=== PATIENT | male | born 1950 | race Caucasian/White ===

== ENCOUNTER 2019-03-29 16:34 | Emergency (ER) | payer MEDICARE ==
[2019-03-29] MEDS: SODIUM CHLORIDE 0.9% 500 ML 500 ML IV SCH ×5 (17:00→20:45)
[2019-03-29] MEDS ORDERED: IBUPROFEN 600 MG TAB PO STA (17:09)
--- NOTE | 2019-03-29 17:19 | ED ---
General Adult HPI - General Chief complaint: Weakness Stated complaint: POSS INFECTION Time Seen by Provider: 03/29/19 16:45 Source: patient, EMS Mode of arrival: EMS Limitations: no limitations - History of Present Illness Initial comments: The patient is a 68-year-old male who presents emergency room with reported generalized weakness. He does have a history of pancreatic cancer. Family states that today he has been generally weak. They have noticed color changes to his skin. Eyes appear more yellow. He did have a stent placed at [facility] in December. His surgeon was Dr. Benitez. Reports that he has been following up with for chemotherapy. Last chemo was 3 weeks ago. This was his first round he is completed. No radiation received. Family noted that the patient had a fever this morning. States that his stent has been infected once before. He admits to chills. Denies any pain. No headaches or visual changes. Denies any neck pain or stiffness. No chest pain or shortness of breath. Denies a cough. No abdominal pain. There are no other alleviating, precipitating or modifying factors - Related Data Home Medications Medication Instructions Recorded Confirmed Dronabinol [Marinol] 2.5 mg PO AC-BID 03/29/19 03/29/19 Methylphenidate HCl [Ritalin] 5 mg PO BID 03/29/19 03/29/19 Ondansetron Odt [Zofran Odt] 8 mg PO TID PRN 03/29/19 03/29/19 oxyCODONE HCL [oxyCODONE HCL (IR)] 10 mg PO Q4H PRN 03/29/19 03/29/19 Allergies Allergy/AdvReac Type Severity Reaction Status Date / Time No Known Allergies Allergy Verified 03/29/19 17:46 Review of Systems ROS Statement: Those systems with pertinent positive or pertinent negative responses have been documented in the HPI. ROS Other: All systems not noted in ROS Statement are negative. Past Medical History Past Medical History: CVA/TIA Additional Past Medical History / Comment(s): Pancraetic Cancer dx. in December, Medial Port for chemo, low hgb History of Any Multi-Drug Resistant Organisms: None Reported Past Surgical History: Heart Catheterization With Stent, Hernia Repair Additional Past Surgical History / Comment(s): Bile duct stent in January 2019, left Carotid endarterectomy Past Psychological History: No Psychological Hx Reported Smoking Status: Never smoker Past Alcohol Use History: None Reported Past Drug Use History: None Reported General Exam Limitations: no limitations Course Vital Signs 03/29/19 03/29/19 03/29/19 16:44 16:46 16:50 Temperature 100.9 F H Pulse Rate 123 H 122 H Respiratory 18 17 20 Rate Blood Pressure 81/39 81/39 81/39 O2 Sat by Pulse 94 L 95 94 L Oximetry 03/29/19 03/29/19 03/29/19 17:00 17:10 17:20 Temperature Pulse Rate 117 H 112 H 108 H Respiratory 20 17 20 Rate Blood Pressure 74/48 75/46 86/53 O2 Sat by Pulse 97 100 Oximetry 03/29/19 03/29/19 03/29/19 17:30 17:40 17:50 Temperature Pulse Rate 107 H 105 H Respiratory 17 20 Rate Blood Pressure 88/53 90/52 94/54 O2 Sat by Pulse 100 Oximetry 03/29/19 03/29/19 03/29/19 17:54 18:00 18:10 Temperature Pulse Rate 105 H 104 H 103 H Respiratory 18 20 20 Rate Blood Pressure 89/56 89/56 84/54 O2 Sat by Pulse 100 97 96 Oximetry 03/29/19 03/29/19 03/29/19 18:20 18:30 18:40 Temperature Pulse Rate 103 H 103 H Respiratory 18 19 17 Rate Blood Pressure 91/55 92/53 90/55 O2 Sat by Pulse 96 96 Oximetry 03/29/19 03/29/19 03/29/19 18:50 19:00 19:10 Temperature Pulse Rate 102 H 101 H Respiratory 17 17 Rate Blood Pressure 93/56 86/56 O2 Sat by Pulse 96 97 Oximetry 03/29/19 03/29/19 03/29/19 19:20 19:30 19:40 Temperature Pulse Rate 98 106 H 105 H Respiratory 17 17 18 Rate Blood Pressure 94/54 84/49 96/57 O2 Sat by Pulse 98 97 98 Oximetry 03/29/19 03/29/19 03/29/19 19:50 19:51 20:00 Temperature Pulse Rate 112 H 114 H 130 H Respiratory 18 18 18 Rate Blood Pressure 97/53 109/69 108/69 O2 Sat by Pulse 98 98 95 Oximetry 03/29/19 03/29/19 03/29/19 20:10 20:20 20:30 Temperature 99.8 F H Pulse Rate 113 H 112 H 112 H Respiratory 20 19 17 Rate Blood Pressure 111/64 99/58 99/55 O2 Sat by Pulse 98 99 99 Oximetry 03/29/19 03/29/19 03/29/19 20:40 20:50 23:44 Temperature 99.3 F Pulse Rate 114 H 115 H 156 H Respiratory 19 19 20 Rate Blood Pressure 93/50 105/57 87/46 O2 Sat by Pulse 98 96 95 Oximetry 03/30/19 03/30/19 03/30/19 00:10 00:17 00:27 Temperature Pulse Rate 128 H 122 H 121 H Respiratory 18 18 18 Rate Blood Pressure 67/42 70/36 80/43 O2 Sat by Pulse 98 98 Oximetry 03/30/19 03/30/19 03/30/19 00:55 00:58 01:08 Temperature Pulse Rate 118 H 120 H 118 H Respiratory 18 18 18 Rate Blood Pressure 72/50 128/63 148/76 O2 Sat by Pulse 96 98 Oximetry 03/30/19 03/30/19 03/30/19 01:14 01:20 01:29 Temperature 98.1 F 98.2 F Pulse Rate 126 H 123 H 123 H Respiratory 18 18 18 Rate Blood Pressure 114/56 96/59 112/58 O2 Sat by Pulse Oximetry 03/30/19 01:44 Temperature 98.9 F Pulse Rate 125 H Respiratory 18 Rate Blood Pressure 106/61 O2 Sat by Pulse Oximetry EKG Findings - EKG Comments: EKG Findings:: EKG demonstrates a sinus tachycardia with a ventricular rate of 114. MA interval 150. QRS 82. QTC 441. There is minimal ST depression in lead 2. No acute segment elevations concerning for ischemic changes. EKG at 2339 demonstrates a sinus tachycardia with a ventricular rate of 155. MA interval 130. QRS 84. QTC of 494. There is significant baseline artifact. There are no acute ST segment elevations or depressions concerning for ischemic changes Medical Decision Making - Medical Decision Making The patient arrives and is markedly hypotensive and tachycardic. Blood pressures are 60 systolic. His heart rate is 125. 2 PIV are started. The patient was given 2400 mL of normal saline as he does meet sepsis criteria. He is febrile with a temp of 100.9 on admission. Blood cultures were obtained. Laboratory states were conducted. White blood cell count is 87.5. Hemoglobin 7.2. Platelets 452. PT is 20.4 INR 2.1. Sodium 126. Lactic acid 5.1. Calcium 7.2. Total bilirubin is 7.1 with a conjugate bilirubin of 4. Alk phos a 43, ammonia 45, lipase 349. CT of the abdomen and pelvis demonstrates large pancreatic mass consistent with primary tumor. Biliary stent is present and appears to have moderate dilation of the biliary tree suggesting obstruction of the stent. Bile duct is 4 cm. There is diffuse hepatic metastatic disease. Ab dominal ascites. Subcapsular fluid and low attenuation in the spleen which could relate to to metastatic disease and also sclerotic focus of T7. I discussed these results with the patient. Family at bedside is aware of the elevated white blood cell count and thinks that there may be a component of underlying leukemia. This has been previously discussed to them. They state that his hemoglobin has fallen 3 times for which she required blood transfusion. The patient's blood pressure has improved to 109 systolic. Heart rate has improved to 100. I did recommend that the patient be transferred to [facility] as this is where his stent had been placed and is possibly obstructed. Family did agree to this. I did call discuss the case with the ER physician who recommended that the patient be a direct transfer to the ICU. I called and discussed the case with Dr. Huerta who accepted admission. The patient will be sent via EMS. [employer] forms were filled out and the patient was transferred in stable condition EMS does arrive to lease picker the patient approximately 2-1/2 hours after transfer was initiated. It is noted that the patients heart rate spiked to 150. We did recheck his blood pressures and they acutely dropped from 130s systolic to 70s systolic. Because of this we, did access the patient's port and he was started on a small amount of Levophed. Type and screen was performed as well as a repeat CBC. Patient's hemoglobin has dropped to 6.7 and therefore I did i nitiate a PRBC transfusion. Repeat blood pressures have improved. Heart rate has come down. The patient was then transferred in critical yet stabilized condition - Lab Data Result diagrams: 03/30/19 00:15 03/29/19 16:54 Lab Results 03/29/19 03/29/19 03/29/19 Range/Units 16:54 16:54 16:54 WBC 87.5 H* (3.8-10.6) k/uL RBC 2.61 L (4.30-5.90) m/uL Hgb 7.2 L (13.0-17.5) gm/dL Hct 23.1 L (39.0-53.0) % MCV 88.5 (80.0-100.0) fL MCH 27.6 (25.0-35.0) pg MCHC 31.2 (31.0-37.0) g/dL RDW 18.9 H (11.5-15.5) % Plt Count 452 H (150-450) k/uL Neutrophils % (Manual) 68 % Band Neutrophils % 13 % Lymphocytes % (Manual) 4 % Monocytes % (Manual) 10 % Metamyelocytes % 5 % Myelocytes % 1 % Other Cells % % Neutrophils # (Manual) 70.80 H (1.3-7.7) k/uL Lymphocytes # (Manual) 3.50 (1.0-4.8) k/uL Monocytes # (Manual) 8.75 H (0-1.0) k/uL Metamyelocytes # (Man) 4.38 H (0) k/uL Myelocytes # (Manual) 0.88 H (0) k/uL Nucleated RBCs 0 (0-0) /100 WBC Manual Slide Review Performed Polychromasia Present Hypochromasia Marked Anisocytosis Slight PT (9.0-12.0) sec INR (<1.2) APTT (22.0-30.0) sec Sodium 126 L (137-145) mmol/L Potassium 5.0 (3.5-5.1) mmol/L Chloride 90 L (98-107) mmol/L Carbon Dioxide 22 (22-30) mmol/L Anion Gap 14 mmol/L BUN 15 (9-20) mg/dL Creatinine 0.88 (0.66-1.25) mg/dL Est GFR (CKD-EPI)AfAm >90 (>60 ml/min/1.73 sqM) Est GFR (CKD-EPI)NonAf 89 (>60 ml/min/1.73 sqM) Glucose 93 (74-99) mg/dL Lactic Ac Sepsis Rflx Plasma Lactic Acid Shant 5.1 H* (0.7-2.0) mmol/L Calcium 7.2 L (8.4-10.2) mg/dL Total Bilirubin 7.1 H (0.2-1.3) mg/dL Conjugated Bilirubin 4.0 H (0.0-0.3) mg/dL Unconjugated Bilirubin 0.7 (0.0-1.1) mg/dL Delta Bilirubin 2.4 H (0.0-0.2) mg/dL AST 32 (17-59) U/L ALT 40 (21-72) U/L Alkaline Phosphatase 843 H (38-126) U/L Ammonia 45 H (<30) umol/L Troponin I (0.000-0.034) ng/mL Total Protein 4.8 L (6.3-8.2) g/dL Albumin 1.9 L (3.5-5.0) g/dL Lipase 349 H (23-300) U/L Blood Type Blood Type Confirm Blood Type Recheck Bld Type Recheck Status Antibody Screen Crossmatch Spec Expiration Date 03/29/19 03/29/19 03/29/19 Range/Units 16:54 16:54 16:54 WBC (3.8-10.6) k/uL RBC (4.30-5.90) m/uL Hgb (13.0-17.5) gm/dL Hct (39.0-53.0) % MCV (80.0-100.0) fL MCH (25.0-35.0) pg MCHC (31.0-37.0) g/dL RDW (11.5-15.5) % Plt Count (150-450) k/uL Neutrophils % (Manual) % Band Neutrophils % % Lymphocytes % (Manual) % Monocytes % (Manual) % Metamyelocytes % % Myelocytes % % Other Cells % % Neutrophils # (Manual) (1.3-7.7) k/uL Lymphocytes # (Manual) (1.0-4.8) k/uL Monocytes # (Manual) (0-1.0) k/uL Metamyelocytes # (Man) (0) k/uL Myelocytes # (Manual) (0) k/uL Nucleated RBCs (0-0) /100 WBC Manual Slide Review Polychromasia Hypochromasia Anisocytosis PT 20.4 H (9.0-12.0) sec INR 2.1 H (<1.2) APTT 40.9 H (22.0-30.0) sec Sodium (137-145) mmol/L Potassium (3.5-5.1) mmol/L Chloride (98-107) mmol/L Carbon Dioxide (22-30) mmol/L Anion Gap mmol/L BUN (9-20) mg/dL Creatinine (0.66-1.25) mg/dL Est GFR (CKD-EPI)AfAm (>60 ml/min/1.73 sqM) Est GFR (CKD-EPI)NonAf (>60 ml/min/1.73 sqM) Glucose (74-99) mg/dL Lactic Ac Sepsis Rflx Plasma Lactic Acid Shant (0.7-2.0) mmol/L Calcium (8.4-10.2) mg/dL Total Bilirubin (0.2-1.3) mg/dL Conjugated Bilirubin (0.0-0.3) mg/dL Unconjugated Bilirubin (0.0-1.1) mg/dL Delta Bilirubin (0.0-0.2) mg/dL AST (17-59) U/L ALT (21-72) U/L Alkaline Phosphatase (38-126) U/L Ammonia (<30) umol/L Troponin I <0.012 (0.000-0.034) ng/mL Total Protein (6.3-8.2) g/dL Albumin (3.5-5.0) g/dL Lipase (23-300) U/L Blood Type B Positive Blood Type Confirm Blood Type Recheck No Previous Record Bld Type Recheck Status CABO Indicated Antibody Screen NEGATIVE Crossmatch See Detail Spec Expiration Date 04/01/2019235303/29/19 03/29/19 03/30/19 Range/Units 17:58 23:59 00:15 WBC 37.9 H (3.8-10.6) k/uL RBC 2.49 L (4.30-5.90) m/uL Hgb 6.7 L* (13.0-17.5) gm/dL Hct 22.3 L (39.0-53.0) % MCV 89.6 (80.0-100.0) fL MCH 27.1 (25.0-35.0) pg MCHC 30.3 L (31.0-37.0) g/dL RDW 18.7 H (11.5-15.5) % Plt Count 340 (150-450) k/uL Neutrophils % (Manual) 89 % Band Neutrophils % 6 % Lymphocytes % (Manual) 2 % Monocytes % (Manual) 3 % Metamyelocytes % % Myelocytes % % Other Cells % % Neutrophils # (Manual) 36.00 H (1.3-7.7) k/uL Lymphocytes # (Manual) 0.76 L (1.0-4.8) k/uL Monocytes # (Manual) 1.14 H (0-1.0) k/uL Metamyelocytes # (Man) (0) k/uL Myelocytes # (Manual) (0) k/uL Nucleated RBCs 0 (0-0) /100 WBC Manual Slide Review Performed Polychromasia Present Hypochromasia Marked Anisocytosis Slight PT (9.0-12.0) sec INR (<1.2) APTT (22.0-30.0) sec Sodium (137-145) mmol/L Potassium (3.5-5.1) mmol/L Chloride (98-107) mmol/L Carbon Dioxide (22-30) mmol/L Anion Gap mmol/L BUN (9-20) mg/dL Creatinine (0.66-1.25) mg/dL Est GFR (CKD-EPI)AfAm (>60 ml/min/1.73 sqM) Est GFR (CKD-EPI)NonAf (>60 ml/min/1.73 sqM) Glucose (74-99) mg/dL Lactic Ac Sepsis Rflx Y Plasma Lactic Acid Shant (0.7-2.0) mmol/L Calcium (8.4-10.2) mg/dL Total Bilirubin (0.2-1.3) mg/dL Conjugated Bilirubin (0.0-0.3) mg/dL Unconjugated Bilirubin (0.0-1.1) mg/dL Delta Bilirubin (0.0-0.2) mg/dL AST (17-59) U/L ALT (21-72) U/L Alkaline Phosphatase (38-126) U/L Ammonia (<30) umol/L Troponin I (0.000-0.034) ng/mL Total Protein (6.3-8.2) g/dL Albumin (3.5-5.0) g/dL Lipase (23-300) U/L Blood Type Blood Type Confirm B Positive Blood Type Recheck Bld Type Recheck Status Antibody Screen Crossmatch Spec Expiration Date Disposition Clinical Impression: Leukocytosis, Anemia, Pancreatic cancer, Elevated INR, Biliary stent obstruc tion Disposition: OTHER INSTITUTION NOT DEFINED Condition: Serious Is patient prescribed a controlled substance at d/c from ED?: No Referrals: None,Stated [Primary Care Provider] - 1-2 days - Out of Hospital Transfer - Req. Specs Out of Hospital Transfer - Requested Specifics: Intensive Care Unit ([facility] - room 3521)
--- NOTE | 2019-03-29 17:47 | XR ---
EXAMINATION TYPE: XR chest 2V DATE OF EXAM: 03/29/2019 COMPARISON: NONE HISTORY: Fever TECHNIQUE: Frontal and lateral views of the chest are obtained. FINDINGS: There is elevated right diaphragm. There is some blunting of the left costophrenic angle. There is minimal pulmonary congestion. There is left-sided central venous catheter with tip in the palacio perior vena cava. IMPRESSION: Elevated right diaphragm. Left pleural effusion. No overt heart failure. Mild pulmonary congestion.
[2019-03-29 17:49] LABS: Anisocytosis Slight; HCT 23.1 % (39.0-53.0); HGB 7.2 gm/dL (13.0-17.5); Hypochromasia Marked; INR 2.1 (<1.2); MCH 27.6 pg (25.0-35.0); MCHC 31.2 g/dL (31.0-37.0); MCV 88.5 fL (80.0-100.0); Mean Platelet Volume 6.9; Partial Thromboplastin Time 40.9 sec (22.0-30.0); Platelet Count 452 k/uL (150-450); Prothrombin Time 20.4 sec (9.0-12.0); RBC 2.61 m/uL (4.30-5.90); RDW 18.9 % (11.5-15.5)
[2019-03-29 17:51] LABS: ALT 40 U/L (21-72); AST 32 U/L (17-59); African American GFR (CKD) >90 (>60 ml/min/1.73 sqM); Albumin 1.9 g/dL (3.5-5.0); Alkaline Phosphatase 843 U/L (38-126); Anion Gap 14 mmol/L; Bilirubin, Delta 2.4 mg/dL (0.0-0.2); Bilirubin,Unconjugated 0.7 mg/dL (0.0-1.1); Blood Urea Nitrogen 15 mg/dL (9-20); Calcium 7.2 mg/dL (8.4-10.2); Carbon Dioxide 22 mmol/L (22-30); Chloride 90 mmol/L (98-107); Glucose 93 mg/dL (74-99); Sodium 126 mmol/L (137-145); Total Bilirubin 7.1 mg/dL (0.2-1.3); Total Protein 4.8 g/dL (6.3-8.2)
[2019-03-29 17:56] LABS: WBC 87.5 k/uL (3.8-10.6)
[2019-03-29 17:58] LABS: Lactic Acid, Venous 5.1 mmol/L (0.7-2.0)
[2019-03-29 18:26] LABS: Band Neutrophils % 13 %; Metamyelocytes # (M) 4.38 k/uL (0); Metamyelocytes % 5 %; Monocytes # (M) 8.75 k/uL (0-1.0); Myelocytes # (M) 0.88 k/uL (0); Myelocytes % 1 %; Neutrophils % (M) 68 %; Nucleated Red Blood Cells 0 /100 WBC (0-0); Polychromasia Present; Total Cells Counted 200
--- NOTE | 2019-03-29 19:39 | CT ---
EXAMINATION TYPE: CT abdomen pelvis w con DATE OF EXAM: 03/29/2019 COMPARISON: None HISTORY: Weakness, jaundice, hx of pancreatic CA CT DLP: 1253.2 mGycm Automated exposure control for dose reduction was used. TECHNIQUE: Helical acquisition of images was performed from the lung bases through the pelvis. CONTRAST: Performed without Oral Contrast and with IV Contrast, patient injected with 100 mL of Isovue 300. FINDINGS: There are bilateral pleural effusions and larger on the left side. There is some infiltrate and atele ctasis at the lung bases. Heart size is normal. There is no pericardial effusion. There is irregular 3 x 1.5 cm hypodensity superior spleen. There is 9 x 3 cm area of low attenuation in the inferior splenic could be subcapsular. There are numerous variable-sized hypodense masses throughout the liver. These measure up to 6 cm. Ga llbladder is distended. There is a biliary stent. There is 7 cm irregular mass involving the pancreat ic head. There is multiple cysts in the body of the pancreas. There is probably cystic enlargement of the pancreatic duct. There is moderate dilation of the common hepatic duct. Common bile duct measure s 4 cm. Gallbladder is distended and measures 4 cm in diameter. There is mild amount of free fluid in the pelvis. Bladder distends smoothly. There is no inguinal her nahum. There is no sign of a bowel obstruction. There is no adrenal mass. Kidneys show satisfactory contrast opacification. There is no hydronephrosi s. There are multiple bilateral renal calculi that are more on the left side. Calculi measure up to 1 cm. The bony pelvis appears intact. There are some spondylotic changes in the lumbar spine with narr owing at L3-4 L4-5 disc spaces. There is no compression fracture. There is rounded sclerotic focus in the T7 vertebral body that measures 1 cm. IMPRESSION: Large pancreatic mass consistent with primary tumor. Biliary stent is present and there is moderate d ilation of the biliary tree that suggests obstruction of the stent. Common bile duct is 4 cm. Mildly dilated gallbladder measures 4 cm in diameter. Diffuse hepatic metastatic disease. Abdominal mild ascites. Subcapsular fluid and low-attenuation in the spleen could relate to metastatic disease. Basilar pulmonary infiltrates and atelectasis with left pleural effusion. T7 sclerotic focus could be metastatic disease.
[2019-03-29] MEDS ORDERED: fentaNYL (PF) 50 MCG/ML 2 ML AMP IVP PRN (22:36)
[2019-03-29] MEDS ORDERED: SODIUM CHLORIDE 0.9% 500 ML 500 ML IV STA (23:45)
[2019-03-29] MEDS ORDERED: NOREPINEPHRINE 4 MG in SODIUM CHLORIDE 0.9% 250 ML IV ONE (23:56)
[2019-03-30 00:19] VITALS: RESP 18
[2019-03-30] MEDS ORDERED: NOREPINEPHRINE 32 MG in SODIUM CHLORIDE 0.9% 218 ML IV ONE (00:31)
[2019-03-30 00:34] LABS: Anisocytosis Slight; HCT 22.3 % (39.0-53.0); Hypochromasia Marked; MCH 27.1 pg (25.0-35.0); MCHC 30.3 g/dL (31.0-37.0); MCV 89.6 fL (80.0-100.0); Mean Platelet Volume 6.6; Platelet Count 340 k/uL (150-450); RBC 2.49 m/uL (4.30-5.90); RDW 18.7 % (11.5-15.5); WBC 37.9 k/uL (3.8-10.6)
[2019-03-30 00:37] LABS: HGB 6.7 gm/dL (13.0-17.5)
[2019-03-30 00:58] LABS: Band Neutrophils % 6 %; Lymphocytes # (M) 0.76 k/uL (1.0-4.8); Monocytes # (M) 1.14 k/uL (0-1.0); Neutrophils % (M) 89 %; Nucleated Red Blood Cells 0 /100 WBC (0-0); Polychromasia Present; Total Cells Counted 100
[2019-03-30 01:52] VITALS: BP 106/61; PULSE 125; TEMP 98.9
--- NOTE | 2019-04-03 03:46 | CDI ---
Dear Laxmi Taveras DO: Please do addendum Physical Exam. Thank you, Kaleb Donohue, Shuttle Final Inspector. If you have any questions, please contact Fire Control Technician G at [phone]. [facility]
== END 2019-03-30 02:00 | disposition short-term general hospital (02) ==
LOC: EC 16:34
DX: C25.9 Malignant neoplasm of pancreas, unspecified (principal); T85.590A Other mechanical complication of bile duct prosthesis, initial encounter; D64.9 Anemia, unspecified; D72.829 Elevated white blood cell count, unspecified; R79.1 Abnormal coagulation profile; I95.9 Hypotension, unspecified; R00.0 Tachycardia, unspecified; A41.9 Sepsis, unspecified organism; R18.8 Other ascites; M89.8X8 Other specified disorders of bone, other site; H15.89 Other disorders of sclera; Z79.899 Other long term (current) drug therapy; Z92.21 Personal history of antineoplastic chemotherapy; Z86.73 Personal history of transient ischemic attack (TIA), and cerebral infarction without residual deficits
CPT/HCPCS: 99285; 96365; 96367; 96366; 96375; 36415 ×2; 93005; 86900; 86901; 80053; 82140; 82248; 83605; 83690; 84484; 85025 ×2; 85610; 85730; 86850; 86920; 87040; 87077; 87186; 71046; 74177; P9016; J0696; J3010; Q9967; 36430